=== PATIENT | female | born 1960 | race Caucasian/White ===

== ENCOUNTER → 2018-09-13 | Outpatient (CLI) | payer BC, OTHER | LOC: M SLEEP 19:31 | PROVIDERS: ATTEND Internal Medicine Pulmonary Disease | DX: G47.30 Sleep apnea, unspecified (principal) ==

== ENCOUNTER → 2018-12-15 | Outpatient (CLI) | payer BC, OTHER ==
[~2018-12-15] MED LIST: METHACHOLINE KIT (J7674) INH ONE
--- NOTE | 2018-12-15 14:36 | PFTRPT ---
Height: 62.00 Inches Weight: 248.00 Lbs BSA: 2.09 Diagnosis: R06.02 DATE OF PROCEDURE: 12/15/2018 ORDERED BY: Dr. Swanson INTERPRETATION: Study of excellent technical quality. Under protocol, methacholine was administered. Even after a maximal dose of 25 mg or 188.875 CDUs, no provocation dose ever achieved. IMPRESSION: Negative methacholine challenge study. MTDD
== END ==
LOC: M CARPUL 12:38
PROVIDERS: ATTEND Internal Medicine Pulmonary Disease
DX: R06.02 Shortness of breath (principal)